=== PATIENT | male | born 2005 | race Hispanic/Latino ===

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

== ENCOUNTER 2025-09-20 11:17 | Emergency (ER) | payer BC ==
[~2025-09-20] VITALS: Ht 172.7 cm; Wt 69.9 kg
[2025-09-20] MEDS: FAMOTIDINE 20MG VIAL IV ONE (11:58)
[2025-09-20] MEDS: 0.9%NACL 1000ML 1,000 ML IV ONE (11:58)
[2025-09-20 12:09] LABS: IMMATURE GRANULOCYTE ABSOLUTE 0.03 K/uL (0-1); NUCLEATED RED BLOOD CELLS 0.0 % (0.0-0.19); PLATELET COUNT (AUTO) 276 K/uL (130-400); RED BLOOD CELL COUNT(AUTO) 4.91 MIL/uL (4.50-6.20); RED CELL DISTRIBUTION WIDTH 12.4 % (11.0-15.5); WHITE BLOOD COUNT (AUTO) 11.9 K/uL (4.8-10.8)
[2025-09-20 12:18] LABS: ASPARTATE AMINOTRANSFERASE 20.0 U/L (10-37); CREATININE 1.1 mg/dL (0.5-1.3); GLOMERULAR FILTR. RATE CALC 99.0 mL/min (>90); GLUCOSE,RANDOM 126.0 mg/dL (70-105); SODIUM SERUM 141.0 mmol/L (136-145); TOTAL PROTEIN, SERUM 8.0 g/dL (6.0-8.3); UREA NITROGEN, BLOOD 14.0 mg/dL (7-18)
--- NOTE | 2025-09-20 13:07 | HMCIMG ---
EXAM: US Abdomen, Right Upper Quadrant. CLINICAL HISTORY: r/o acute ry TECHNIQUE: Right upper quadrant sonography performed with image documentation. COMPARISON: None provided. FINDINGS: LIVER: Within normal limits in size (13.9 cm) and echogenicity. No mass. GALLBLADDER: The gallbladder appears normal. Gallbladder wall thickness is 1 mm. No abnormal gallbladder wall thickening was seen. No gallstones are evident. COMMON BILE DUCT: No dilation. Maximum caliber is 3 mm. PANCREAS: The pancreas is obscured by bowel gas. RIGHT KIDNEY: Unremarkable, and it measures 10.5 x 3.7 x 5.1 cm. Normal renal contours. No renal mass or calculus. No hydronephrosis. MISCELLANEOUS: Increase in the intestinal air. IMPRESSION: 1. No acute intraabdominal pathology. /[place]
--- NOTE | 2025-09-20 13:33 | ERN ---
General Chief Complaint: Nausea,Vomiting,Diarrhea Stated Complaint: NAUSEA,VOMITING,DIARRHEA Time Seen by MD: 11:18 Time Seen by Midlevel: 11:18 Source: patient History of Present Illness Initial Comments Patient is a 19-year-old male with no significant past medical history presenting to the emergency department for evaluation of nausea and vomiting and diarrhea that started last night. Patient also reports diffuse abdominal pain worse on the right upper quadrant. Allergies: Coded Allergies: No Known Allergies (Unverified Allergy, Unknown, 04/10/23) No Known Drug Allergies (Unverified Allergy, Unknown, 04/10/23) Home Meds Active Scripts Ondansetron (Ondansetron Odt) 4 Mg Tab.rapdis, 4 MG SL TID PRN for NAUSEA, #30 TAB 0 Refills Prov:ASHLEY ORO MD 04/10/23 Past Medical History Past Medical History: No Pertinent History Past Surgical History: None ROS Dictation CONSTITUTIONAL: Negative except for HPI HEAD/FACE: Negative except for HPI EENT: Negative except for HPI RESPIRATORY: Negative except for HPI GASTROINTESTINAL/ABDOMINAL: Negative except for HPI GENITOURINARY: Negative except for HPI MUSCULOSKELETAL: Negative except for HPI INTEGUMENTARY: Negative except for HPI NEUROLOGICAL/PSYCH: Negative except for HPI HEMATOLOGIC/LYMPHATIC: Negative except for HPI All Systems Negative, Except as noted above. 13 point review of systems assessed and all negative except for above. Physical Exam Physical Exam Dictation Vital Signs reviewed General Appearance: Alert, oriented x 3, no acute distress, well developed, nourished. Head and Face: non-traumatic. Eyes: PERRL, pink conjunctivas, eyelid no trauma, anterior chamber with arcus senilis. Ears: Pinnas intact and no signs of trauma or erythema ear canals clear and no discharge TM no erythema Nose: No discharge, no bleeding. Oropharynx: Mouth normal, tongue pink, pharynx clear,no erythema, tonsils no exudates, no abscesses noted, mucous membrane moist Neck: Supple, non-tender, no thyromegaly, no masses, no JVD, no bruits Breast:Deferred Chest:No tenderness, no crepitus, no paradoxical movement, no retractions Lungs:Clear, well-ventilated, symmetric, no rales, no wheezing, no rhonchi, no stridor, good breath sounds bilaterally Heart: Regular rate, regular rhythm, no murmur, no gallops Vascular: no peripheral edema, Abdomen: Soft, positive bowel sounds, nondistended, no guarding, nontender, no rebound, no masses no hepatomegaly, no splenomegaly, no Urena's sign, no hernias. Rectal: Deferred Genital: Deferred Neurological: Normal speech, motor function intact, sensory function intact Musculoskeletal: Neck nontender, full range of motion, back nontender, full range of motion, Extremities: nontender, full range of motion Skin: Color pink, dry, no turgor, no rash, no lacerations, no abrasions, no contusions. Lymphatic: Deferred Results Laboratory and Microbiology Lab and Micro Result Laboratory Tests Test 09/20/25 11:55 White Blood Count 11.9 K/uL (4.8-10.8) H Red Blood Count 4.91 MIL/uL (4.50-6.20) Hemoglobin 15.1 g/dL (14.0-18.0) Hematocrit 43.4 % (42-54) Mean Corpuscular Volume 88.4 fL (80-100) Mean Corpuscular Hemoglobin 30.8 pg (27.0-33.0) Mean Corpuscular Hemoglobin Concent 34.8 g/dL (32.0-36.0) Red Cell Distribution Width 12.4 % (11.0-15.5) Platelet Count 276 K/uL (130-400) Mean Platelet Volume 10.3 fL (7.5-10.5) Immature Granulocyte % (Auto) 0.3 % (0-1) Neutrophils (%) (Auto) 91.8 % (40.0-77.0) H Lymphocytes (%) (Auto) 2.9 % (21.0-51.0) L Monocytes (%) (Auto) 4.4 % (3.0-13.0) Eosinophils (%) (Auto) 0.3 % (0.0-8.0) Basophils (%) (Auto) 0.3 % (0.0-5.0) Neutrophils # (Auto) 10.9 K/uL (1.8-7.7) H Lymphocytes # (Auto) 0.4 K/uL (1.0-4.8) L Monocytes # (Auto) 0.5 K/uL (0.1-1.0) Eosinophils # (Auto) 0.04 K/uL (0.00-0.70) Basophils # (Auto) 0.03 K/uL (0.00-0.20) Absolute Immature Granulocyte (auto 0.03 K/uL (0-1) Nucleated Red Blood Cells 0.0 % (0.0-0.19) White Cell Morphology Comment See comments Sodium Level 141 mmol/L (136-145) Potassium Level 3.8 mmol/L (3.5-5.1) Chloride Level 102 mmol/L (101-111) Carbon Dioxide Level 28 mmol/L (21-32) Blood Urea Nitrogen 14 mg/dL (7-18) Creatinine 1.1 mg/dL (0.5-1.3) Glomerular Filtration Rate Calc 99 mL/min (>90) Random Glucose 126 mg/dL (70-105) H Total Calcium 9.1 mg/dL (8.5-10.1) Magnesium Level 1.60 mg/dL (1.80-2.40) L Total Bilirubin 1.1 mg/dL (0.2-1.0) H Aspartate Amino Transf (AST/SGOT) 20 U/L (10-37) Alanine Aminotransferase (ALT/SGPT) 25 U/L (12-78) Alkaline Phosphatase 65 U/L (50-136) Total Protein 8.0 g/dL (6.0-8.3) Albumin 4.5 g/dL (3.5-5.0) Lipase 19 U/L (16-77) Labs Reviewed?: Yes MDM MDM: Differential diagnosis: Acute cholecystitis, pancreatitis, dehydration, electrolyte abnormality, gastroenteritis There are no social concerns with this patient. Prescription drug management Prescriptions will include: Zofran and Pepcid Medical management and examination interpretation discussions were had by me with other qualified healthcare professionals as indicated for the patient's care. ED Course Orders Procedure Category Date Status Time Cbc With Differential LAB 09/20/25 Complete 11:21 Comprehensive LAB 09/20/25 Complete Metabolic Panel 11:21 Lipase LAB 09/20/25 Complete 11:21 Magnesium LAB 09/20/25 Complete 11:21 Us Abdominal Ruq\Ltd US 09/20/25 Resulted 11:21 Ondansetron 4mg Inj PHA 09/20/25 Complete (Zofran 4mg Inj) 11:30 Famotidine 20mg Vial PHA 09/20/25 Complete (Pepcid 20mg Vial) 11:30 0.9%Nacl 1000ml (Ns PHA 09/20/25 Complete 1000ml) 11:30 Current Medications Medications (Trade) Dose Ordered Sig/[place] Route PRN Reason Start Time Stop Time Status Last Admin Dose Admin Famotidine (Pepcid 20mg Vial) 20 mg ONCE ONCE IV 09/20/25 11:30 09/20/25 11:31 DC 09/20/25 11:58 Ondansetron HCl (zoFRAN 4MG INJ) 4 mg ONCE ONCE IVP 09/20/25 11:30 09/20/25 11:31 DC 09/20/25 11:58 Sodium Chloride 1,000 ml @ 0 mls/hr ONCE ONCE IV 09/20/25 11:30 09/20/25 11:31 DC 09/20/25 11:58 Vital Signs Date Time Temp Pulse Resp B/P (MAP) Pulse Ox O2 Delivery O2 Flow Rate FiO2 09/20/25 11:41 98.2 103 18 120/83 99 Room Air* 0 21 09/20/25 11:18 98.2 103 18 120/83 99 Room Air DX & DISP Disposition: Discharge Departure Impression: Primary Impression: Viral gastroenteritis Additional Impression: Mild dehydration Condition: Stable Scripts Famotidine (Pepcid) 20 Mg Tablet 1 TAB PO BID for 10 Days, #20 TAB 0 Refills Prov: LIDIA FLOWERS [facility] 09/20/25 Ondansetron (Ondansetron Odt) 4 Mg Tab.rapdis 4 MG PO BID for 7 Days, #14 TAB Prov: LIDIA FLOWERS PAC 09/20/25 Additional Instructions: Your blood work today showed mild dehydration. The remainder of your blood work is unremarkable. Your symptoms are most likely related to something that you ate. I have given you a prescription for Zofran and Pepcid which should help with your upset stomach. No need for antibiotics as your symptoms should improve over the next 24-48 hours Please follow up with your primary care doctor in 2-3 days for repeat evaluation or return to the ER if you develop any new or worsening symptoms. Referrals: CAROLINA SARAH (PCP) Time of Disposition: 13:30 I have reviewed the case, and I agree with, Diagnosis and Plan I performed the substantive portion of the visit. I have reviewed and personally made and approve the management plan that is documented in the note by myself or the MOLLY. I acknowledge for responsibility for the patient's management plan. LIDIA FLOWERS PAC Sep 20, 2025 13:33
[2025-09-20 13:37] VITALS: BP 124/80; PULSE 92; RESP 18; TEMP 98.2; O2SAT 99
== END 2025-09-20 13:52 | disposition home or self-care (01) ==
LOC: EDH 11:17
DX: A08.4 Viral intestinal infection, unspecified (principal); E86.0 Dehydration
CPT/HCPCS: 99284; 96374; 76705; 96375; 83735; 80053; 83690; 85025; 36415; J1308; J7030; J2405